=== PATIENT | female | born 1955 | race Caucasian/White ===

== ENCOUNTER → 2023-08-04 15:51 | Outpatient (REF) | payer OTHER, SELFPAY | LOC: RAD 15:51 | PROVIDERS: ATTENDING PHYSICIAN Nurse Practitioner Family | DX: M25.561 Pain in right knee (principal); M54.50 Low back pain, unspecified | CPT/HCPCS: 72110; 73564 ==

== ENCOUNTER → 2023-10-22 16:15 | Outpatient (REF) | payer OTHER, SELFPAY | LOC: PAVMRI 16:15 | PROVIDERS: ATTENDING PHYSICIAN Internal Medicine Geriatric Medicine | DX: M54.16 Radiculopathy, lumbar region (principal); M25.561 Pain in right knee | CPT/HCPCS: 72148; 73721 ==

== ENCOUNTER → 2023-12-04 11:12 | Outpatient (REF) | payer OTHER, SELFPAY | LOC: RAD 11:12 | PROVIDERS: ATTENDING PHYSICIAN Internal Medicine Geriatric Medicine | DX: R68.89 Other general symptoms and signs (principal) | CPT/HCPCS: 76830; 76856 ==

== ENCOUNTER → 2024-03-14 14:32 | Outpatient (REF) | payer OTHER, SELFPAY | LOC: WDC 14:32 | PROVIDERS: ATTENDING PHYSICIAN Internal Medicine Geriatric Medicine | DX: Z12.31 Encounter for screening mammogram for malignant neoplasm of breast (principal) | CPT/HCPCS: 77063; 77067 ==

== ENCOUNTER → 2024-03-18 10:09 | Outpatient (REF) | payer OTHER, SELFPAY | LOC: WDC 10:09 | PROVIDERS: ATTENDING PHYSICIAN Internal Medicine Geriatric Medicine | DX: R92.8 Other abnormal and inconclusive findings on diagnostic imaging of breast (principal) | CPT/HCPCS: 76642 ==

== ENCOUNTER → 2024-07-15 07:34 | Outpatient (REF) | payer OTHER, SELFPAY | LOC: RAD 07:34 | PROVIDERS: ATTENDING PHYSICIAN Internal Medicine Geriatric Medicine | DX: Z13.820 Encounter for screening for osteoporosis (principal) | CPT/HCPCS: 77080 ==

== ENCOUNTER → 2024-09-20 16:09 | Outpatient (REF) | payer OTHER, SELFPAY | LOC: WDC 16:09 | PROVIDERS: ATTENDING PHYSICIAN Internal Medicine Geriatric Medicine | DX: R92.8 Other abnormal and inconclusive findings on diagnostic imaging of breast (principal) | CPT/HCPCS: 77061; 77065 ==

== ENCOUNTER → 2025-01-26 10:18 | Outpatient (REF) | payer OTHER, SELFPAY | LOC: MRI 3T 10:18 | PROVIDERS: ATTENDING PHYSICIAN Physical Medicine & Rehabilitation; FAMILY PHYSICIAN Internal Medicine Geriatric Medicine | DX: M54.16 Radiculopathy, lumbar region (principal) | CPT/HCPCS: 72148 ==

== ENCOUNTER → 2025-03-10 08:20 | Outpatient (REF) | payer OTHER, SELFPAY | LOC: REG 08:20 | PROVIDERS: ATTENDING PHYSICIAN Physical Medicine & Rehabilitation; FAMILY PHYSICIAN Internal Medicine Geriatric Medicine | DX: Z01.818 Encounter for other preprocedural examination (principal) | CPT/HCPCS: 93005 ==

== ENCOUNTER → 2025-03-17 07:59 | Outpatient (REF) | payer OTHER, SELFPAY | LOC: WDC 07:59 | PROVIDERS: ATTENDING PHYSICIAN Internal Medicine Geriatric Medicine | DX: Z12.31 Encounter for screening mammogram for malignant neoplasm of breast (principal) | CPT/HCPCS: 77063; 77067 ==